=== PATIENT | male | born 1985 | race Two or more races ===

== ENCOUNTER 2019-05-02 16:37 | Inpatient (IN) | payer OTHER ==
[~2019-05-02] VITALS: Ht 170.2 cm; Wt 74.4 kg
[2019-05-02 18:09] LABS: CALCIUM 8.1 mg/dL (8.5-10.1); CARBON DIOXIDE 23.5 mmol/L (21-32); CHLORIDE SERUM 104 mmol/L (98-107); CREATININE SERUM 0.7 mg/dL (0.7-1.3); GFR1 > 60 mL/min; GLUCOSE SERUM 97 mg/dL (74-106); POTASSIUM SERUM 3.6 mmol/L (3.5-5.1); SODIUM SERUM 141 mmol/L (136-145)
[2019-05-02 18:11] LABS: BASOPHIL % 0.8 % (0-2); PLATELET COUNT 179 x10^3mcL (130-400)
[2019-05-02 18:12] LABS: RED CELL DISTRIBUTION WIDTH 15.2 % (11.5-14.5)
[2019-05-02 18:14] LABS: ALBUMIN 3.7 g/dL (3.4-5.0); ALKALINE PHOSPHATASE 143 U/L (46-116); ALT/SGPT 68 U/L (16-63); AST/SGOT 89 U/L (15-37); BILIRUBIN TOTAL 1.8 mg/dL (0.20-1.00); TOTAL PROTEIN, SERUM 7.6 g/dL (6.4-8.2)
[2019-05-02 18:39] LABS: microscopic required? NO
[2019-05-02 18:59] LABS: urine erythrocyte NEGATIVE (NEGATIVE)
[2019-05-02 19:38] LABS: AMPHETAMINE QUAL UR NONE DETECTED (See below)
[2019-05-02 19:47] LABS: MAGNESIUM 1.4 mg/dL (1.8-2.4); T4(THYROXINE) 7.7 ug/dL (4.7-13.3)
[2019-05-02 22:42] VITALS: BP 14/97
[2019-05-03 05:20] VITALS: BP 119/86
[2019-05-03 06:51] LABS: BASOPHIL % 0.3 % (0-2)
[2019-05-03 07:05] LABS: CALCIUM 7.8 mg/dL (8.5-10.1); CARBON DIOXIDE 27.6 mmol/L (21-32); CHLORIDE SERUM 103 mmol/L (98-107); CREATININE SERUM 0.5 mg/dL (0.7-1.3); GFR1 > 60 mL/min; GLUCOSE SERUM 77 mg/dL (74-106); POTASSIUM SERUM 3.2 mmol/L (3.5-5.1); SODIUM SERUM 138 mmol/L (136-145)
[2019-05-03 07:20] LABS: PLATELET COUNT 117 x10^3mcL (130-400); RED CELL DISTRIBUTION WIDTH 15.3 % (11.5-14.5)
[2019-05-03 07:54] VITALS: BP 119/88
[2019-05-03 12:05] VITALS: BP 133/64; BP 139/96
[2019-05-03 17:22] VITALS: BP 134/92
[2019-05-03 20:03] VITALS: BP 148/109
[2019-05-04 04:41] VITALS: BP 119/87
[2019-05-04 06:40] LABS: BASOPHIL % 0.2 % (0-2)
[2019-05-04 06:43] LABS: PLATELET COUNT 111 x10^3mcL (130-400); RED CELL DISTRIBUTION WIDTH 15.5 % (11.5-14.5)
[2019-05-04 06:47] LABS: ALKALINE PHOSPHATASE 109 U/L (46-116); ALT/SGPT 62 U/L (16-63); AST/SGOT 90 U/L (15-37); BILIRUBIN TOTAL 2.4 mg/dL (0.20-1.00); CARBON DIOXIDE 27.8 mmol/L (21-32); CHLORIDE SERUM 101 mmol/L (98-107); CREATININE SERUM 0.7 mg/dL (0.7-1.3); GFR1 > 60 mL/min; GLUCOSE SERUM 71 mg/dL (74-106); LIPASE 46 IU/L (73-393); SODIUM SERUM 138 mmol/L (136-145)
[2019-05-04 06:57] LABS: ALBUMIN 3.3 g/dL (3.4-5.0)
[2019-05-04 08:08] VITALS: BP 122/87
[2019-05-04 08:09] VITALS: BP 110/71
[2019-05-04 16:06] VITALS: BP 134/96
[2019-05-04 19:47] VITALS: BP 147/105
[2019-05-05 04:53] VITALS: BP 132/92
[2019-05-05 06:58] LABS: BASOPHIL % 0.2 % (0-2)
[2019-05-05 07:20] LABS: ALKALINE PHOSPHATASE 104 U/L (46-116); ALT/SGPT 94 U/L (16-63); AST/SGOT 159 U/L (15-37); BILIRUBIN TOTAL 1.7 mg/dL (0.20-1.00); CALCIUM 8.3 mg/dL (8.5-10.1); CARBON DIOXIDE 27.7 mmol/L (21-32); CHLORIDE SERUM 102 mmol/L (98-107); CREATININE SERUM 0.7 mg/dL (0.7-1.3); GFR1 > 60 mL/min; GLUCOSE SERUM 77 mg/dL (74-106); MAGNESIUM 1.8 mg/dL (1.8-2.4); POTASSIUM SERUM 3.3 mmol/L (3.5-5.1); SODIUM SERUM 139 mmol/L (136-145); TOTAL PROTEIN, SERUM 7.1 g/dL (6.4-8.2)
[2019-05-05 07:22] LABS: ALBUMIN 3.3 g/dL (3.4-5.0)
[2019-05-05 07:39] LABS: PLATELET COUNT 114 x10^3mcL (130-400); RED CELL DISTRIBUTION WIDTH 15.4 % (11.5-14.5)
[2019-05-05 08:14] VITALS: BP 136/102
[2019-05-05 11:43] VITALS: BP 132/94
[2019-05-05 16:16] VITALS: BP 117/88
[2019-05-05 20:03] VITALS: BP 131/88
[2019-05-06 05:06] VITALS: BP 116/90
[2019-05-06 06:29] LABS: BASOPHIL % 0.3 % (0-2)
[2019-05-06 06:42] LABS: PLATELET COUNT 117 x10^3mcL (130-400); RED CELL DISTRIBUTION WIDTH 15.6 % (11.5-14.5)
[2019-05-06 07:39] LABS: ALKALINE PHOSPHATASE 98 U/L (46-116); ALT/SGPT 102 U/L (16-63); AST/SGOT 148 U/L (15-37); BILIRUBIN TOTAL 1.1 mg/dL (0.20-1.00); CALCIUM 8.3 mg/dL (8.5-10.1); CARBON DIOXIDE 28.5 mmol/L (21-32); CHLORIDE SERUM 104 mmol/L (98-107); CREATININE SERUM 0.9 mg/dL (0.7-1.3); GFR1 > 60 mL/min; GLUCOSE SERUM 91 mg/dL (74-106); MAGNESIUM 1.8 mg/dL (1.8-2.4); POTASSIUM SERUM 3.7 mmol/L (3.5-5.1); SODIUM SERUM 140 mmol/L (136-145); TOTAL PROTEIN, SERUM 6.7 g/dL (6.4-8.2)
[2019-05-06 07:42] LABS: ALBUMIN 3.2 g/dL (3.4-5.0)
[2019-05-06 07:52] VITALS: BP 117/82
[2019-05-06] MEDS ORDERED: PRI20 PO (10:01)
[2019-05-06 11:44] VITALS: BP 131/96
[2019-05-06 12:15] VITALS: BP 116/90
[2019-05-06 16:30] VITALS: BP 109/74
== END 2019-05-06 16:46 | disposition home or self-care (01) | DRG 775 ==
LOC: ED 16:37 → DU 21:19
PROVIDERS: Emergency Medicine; Internal Medicine Gastroenterology; Internal Medicine Pulmonary Disease; ADMIT Internal Medicine Nephrology
PROC: 0DB78ZX Excision of Stomach, Pylorus, Via Natural or Artificial Opening Endoscopic, Diagnostic (ICD-10-PCS; principal; 2019-05-04 10:30)
DX: F10.239 Alcohol dependence with withdrawal, unspecified (principal); N17.0 Acute kidney failure with tubular necrosis; K22.11 Ulcer of esophagus with bleeding; K85.90 Acute pancreatitis without necrosis or infection, unspecified; K70.30 Alcoholic cirrhosis of liver without ascites; K86.1 Other chronic pancreatitis; F12.20 Cannabis dependence, uncomplicated; F17.210 Nicotine dependence, cigarettes, uncomplicated
CPT/HCPCS: 43235; 82962; 83880; 90732; 99406; C9113; G0378; G0480; J1200; J1610; J2060; J2250; J2270; J2310; J2405; J3010; J3475; J3490; J7120